=== PATIENT | female | born 1985 | race American Indian/Alaskan Native ===

== ENCOUNTER 2018-07-23 09:58 | Emergency (ER) | payer OTHER ==
[2018-07-23 10:03] VITALS: BP 129/101
[2018-07-23] MEDS ORDERED: CLEOCIN PO ONE (10:15)
[2018-07-23] MEDS ORDERED: BOOSTRIX IM ONE (10:15)
--- NOTE | 2018-07-23 10:31 | Emergency Department Report ---
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 She and her dogs resulting in her having to kick and hit the dog then ran away for safety in the process, she lost her balance scraping her knee) Associated Symptoms: bleeding. denies: rash, loss of consciousness, cough, diaphoresis, shortness of breath - Related Data Previous Rx's Medication Instructions Recorded Last Taken Type Chlorhexidine Gluconate [Hibiclens] 10 ml TP BID #240 liquid 07/23/18 Unknown Rx Clindamycin [Clindamycin CAP] 150 mg PO Q8HR #21 capsule 07/23/18 Unknown Rx Mupirocin [Bactroban 2%] 15 applic TP TID #15 gm 07/23/18 Unknown Rx Allergies Allergy/AdvReac Type Severity Reaction Status Date / Time Penicillins Allergy Rash Verified 07/23/18 10:03 ED Review of Systems ROS: Stated complaint: DOG BITE Other details as noted in HPI Constitutional: denies: chills, fever Eyes: denies: eye pain, eye discharge, vision change ENT: denies: ear pain, throat pain Respiratory: denies: cough, shortness of breath, wheezing Cardiovascular: denies: chest pain, palpitations Endocrine: no symptoms reported Gastrointestinal: denies: abdominal pain, nausea, diarrhea Genitourinary: denies: urgency, dysuria, discharge Musculoskeletal: denies: back pain, joint swelling, arthralgia Skin: lesions. denies: rash Neurological: denies: headache, weakness, paresthesias Psychiatric: denies: anxiety, depression Hematological/Lymphatic: denies: easy bleeding, easy bruising ED Past Medical Hx - Past Medical History Previous Medical History?: No - Surgical History Past Surgical History?: No - Social History Smoking Status: Unknown if ever smoked Substance Use Type: None - Medications Home Medications: Home Medications Medication Instructions Recorded Confirmed Last Taken Type Chlorhexidine Gluconate [Hibiclens] 10 ml TP BID #240 liquid 07/23/18 Unknown Rx Clindamycin [Clindamycin CAP] 150 mg PO Q8HR #21 capsule 07/23/18 Unknown Rx Mupirocin [Bactroban 2%] 15 applic TP TID #15 gm 07/23/18 Unknown Rx ED Physical Exam - General Limitations: No Limitations General appearance: alert, in no apparent distress - Head Head exam: Present: atraumatic, normocephalic - Eye Eye exam: Present: normal appearance, PERRL Pupils: Present: normal accommodation - ENT ENT exam: Present: normal exam, normal orophraynx, mucous membranes moist - Neck Neck exam: Present: normal inspection, tenderness, full ROM. Absent: lymphadenopathy - Respiratory Respiratory exam: Present: normal lung sounds bilaterally. Absent: respiratory distress, wheezes, rales, chest wall tenderness, accessory muscle use, prolonged expiratory - Cardiovascular Cardiovascular Exam: Present: regular rate, normal rhythm. Absent: bradycardia , tachycardia, systolic murmur, diastolic murmur, rubs, gallop, clicks, JVD - GI/Abdominal GI/Abdominal exam: Present: soft, normal bowel sounds - Extremities Exam Extremities exam: Present: normal inspection, full ROM, tenderness, normal capillary refill, other (multiple puncture wounds involving the right hand, left hand, left knee and right wrist with a large hematoma to the dorsum of the right hand as well. Pain with palpation. 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 There are abrasions to the right wrist and had the left wrist as well as large abrasions to the right upper arm.) - Back Exam Back exam: Present: normal inspection. Absent: CVA tenderness (R), CVA tenderness (L), paraspinal tenderness, vertebral tenderness - Neurological Exam Neurological exam: Present: alert, oriented X3, CN II-XII intact, normal gait - Psychiatric Psychiatric exam: Present: normal affect, normal mood - Skin Skin exam: Present: warm, dry, intact, normal color. Absent: rash ED Course Vital Signs 07/23/18 10:01 Temperature 98.1 F Pulse Rate 78 Respiratory 16 Rate Blood Pressure 129/101 O2 Sat by Pulse 98 Oximetry - Reevaluation(s) Reevaluation #1: 07/23/18 11:15 ATX. X-rays evaluated shows no fractures. This was discussed with patient. 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 Offer her rabies shot. She refused 07/23/18 11:21 Critical care attestation.: If time is entered above; I have spent that time in minutes in the direct care of this critically ill patient, excluding procedure time. ED Disposition Clinical Impression: Dog bite, Puncture wound Disposition: DC-01 TO HOME OR SELFCARE Is pt being admited?: No Does the pt Need Aspirin: No Condition: Stable Instructions: Animal Bite (ED), Puncture Wound (ED) Prescriptions: Clindamycin [Clindamycin CAP] 150 mg PO Q8HR #21 capsule Referrals: PRIMARY CARE, [Primary Care Provider] - 3-5 Days
--- NOTE | 2018-07-23 11:09 | XRay Report ---
FINAL REPORT EXAM: XR HAND 3+V RT HISTORY: DOG BITE TECHNIQUE: Right hand, three views PRIORS: None. FINDINGS: There is no fracture. There is no dislocations seen. There is no acute bony lesion identified. No radiopaque foreign body seen. IMPRESSION: There is no acute abnormality identified.
[2018-07-23] MEDS ORDERED: TRIPLE ANTIBIOTIC TP ONE (11:38)
[2018-07-23] MEDS ORDERED: NACL 0.9% IR ONE (11:44)
[2018-07-23] MEDS ORDERED: NACL 0.9% 500 ML IR ONE (11:49)
== END 2018-07-23 12:40 | disposition home or self-care (01) ==
LOC: ED 09:58
DX: S61.431A Puncture wound without foreign body of right hand, initial encounter (principal); S40.811A Abrasion of right upper arm, initial encounter; S80.212A Abrasion, left knee, initial encounter; S50.812A Abrasion of left forearm, initial encounter; Z88.0 Allergy status to penicillin; W54.0XXA Bitten by dog, initial encounter; Y93.89 Activity, other specified; Y92.89 Other specified places as the place of occurrence of the external cause; Y99.8 Other external cause status
CPT/HCPCS: 90471; 90715; 99283; A6250